=== PATIENT | female | born 1995 | race Caucasian/White ===

== ENCOUNTER 2017-03-23 23:13 | Emergency (ER) | payer BC ==
[~2017-03-23] VITALS: Ht 166.4 cm; Wt 106.6 kg
[~2017-03-23 23:13] MED LIST: DAYTRANA30 MG/9 HR TD; REMERON15 MG PO; RISPERDAL 0.50.5 MG NG; VISTARIL25 MG PO
[2017-03-23] MEDS ORDERED: GABAPENTIN100 M1 PO (23:26)
[2017-03-23] MEDS ORDERED: FOLIC ACID 1MG T1 MG PO (23:26)
[2017-03-23] MEDS ORDERED: PAXIL10 MG PO (23:27)
[2017-03-23] MEDS ORDERED: LAMICTAL XR300 MG PO (23:28)
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
--- OUTSIDE RECORDS SUMMARY | 2017-03-23 23:41 | External Medical Summary Rpt | CCD ---
Author Author , EDU Organization EDU Address Unknown Phone [email or web address] Immunization Name Date Rout CVX Reac Dose Comm Prov Is Faci e tion ent ider Refu lity Give sed n HPV4 08-2 62 999 Hist H149 No H149 6-20 oric (Gar 09 al dasi Info l) rmat ion - Sour ce Unsp ecif ied Tdap 06-2 115 999 Hist H149 No H149 , 6-20 oric Adso 09 al rbed Info rmat ion - Sour ce Unsp ecif ied Meni 06-2 32 999 Hist H149 No H149 divya 6-20 oric occa 09 al l Info MPSV rmat 4 ion - Sour ce Unsp ecif ied HPV4 06-2 62 999 Hist H149 No H149 6-20 oric (Gar 09 al dasi Info l) rmat ion - Sour ce Unsp ecif ied
--- OUTSIDE RECORDS SUMMARY | 2017-03-23 23:41 | External Medical Summary Rpt | CCD ---
Author Author , EDU Organization EDU Address Unknown Phone Immunization Name Date Rout CVX Reac Dose [...]
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
--- OUTSIDE RECORDS SUMMARY | 2017-03-23 23:42 | External Medical Summary Rpt ---
Author Author EDU Jean, [employer] Organization [employer] Address Unknown Phone Unavailable
--- NOTE | 2017-03-24 00:13 | Emergency Room Report ---
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 N Clinical Suspician of Infection? N Mental Status: 1 - Regular (Normal Baseline) Sepsis Risk:Low Sepsis Risk Have you (or family members/close friends) recently traveled outside the [place]? N If Yes, where/when: Have you had exposure to infectious disease within the past month? N TB? Other? Specify: Source patient, RN notes reviewed, family, old records Exam Limitations no limitations Comment pt with acute injury to lt ankle this pm with sts with dec rom and wt bearing Cardiac Chest Pain Chest pain indicative of cardiac No Timing/Duration this evening Severity moderate ALLERGIES Coded Allergies: MDX - No Known Allergies - Nka (NO KNOWN ALLERGIES - NKA) (Mild, 12/17/12) Home Medications Reported Medications Methylphenidate (Daytrana) 30 MG TD DAILY Risperidone (Risperdal 0.5 Mg Tablet) 0.5 MG NG QHS Hydroxyzine Pamoate (Vistaril) 25 MG PO QHS Mirtazapine (Remeron) 15 MG PO QHS FOLIC ACID (Folic Acid) 10 MG PO DAILY Gabapentin (Gabapentin 100MG) 100 MG PO PRN PRN ANXIETY PAROXETINE HCL (Paxil) 100 MG PO DAILY Lamotrigine (Lamictal XR) 300 MG PO DAILY History Medical History General CAD? No Angina: No MS: No Hypertension? No Hyperlipidemia? No CHF? No DVT? No PE? No COPD? No Asthma? No Anemia? No GERD? No Gastric ulcers? No GI Bleed? No Hernia? No Thyroid Problems? No Hypothyroidism? No CVA? No Seizures? No Diabetes? No Renal Insuffiency? No End Stage Renal Disease? No UTI? No Stones? No BPH? No GB Disease: No Nephritic Syndrome? No Asplenia? No Hepatitis? No Sickle Cell Disease? No Arthritis? No Migraines? No Cataracts? No Glaucoma? No MRSA? No HIV? No TB? No Anxiety? Yes Depression? Yes Cancer? No More? 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 Respiratory denies cough, denies shortness of breath Cardiovascular denies chest pain, denies syncope Gastrointestinal see HPI, abdominal pain, nausea, denies vomiting Genitourinary denies: dysuria, frequency, hesitancy, hematuria. Musculoskeletal see HPI, denies back pain, joint pain, joint swelling, denies neck pain Skin denies rash Psychiatric/Neurological denies headache, denies seizure Physical Exam Vital Signs Vital Signs Date Time Temp Pulse Resp B/P Pulse O2 O2 Flow FiO2 Ox Delivery Rate 03/23 2319 97.8 100 18 161/89 96 - WBC >12,000 or <4,000 or 10% bands? 2 or more SIRS Criteria Met? B/P:161/89 MAP:113 Creatinine >2.0? UA output<0.5ml/kg/hr for 2 hrs? Platelet count >100,000? Lactate >2.0mmol/1? INR >1.2 or PTT > than 60 sec? Evidence of Organ Dysfunction? Provider documented clinical suspician of infection? N Sepsis Criteria Count: 1 Sepsis Risk: Low Sepsis Risk General Appearance no apparent distress Eye Exam - bilateral eye PERRL, bilateral eye EOMI Ear, Nose, Throat normal ENT inspection Neck non-tender Respiratory Status No: respiratory distress. 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 No Results/Orders Orders Procedure Date/time Status ANKLE-LT-3 VIEWS 03/23 2323 Active XRAY/CT/US XRAY/CT/US XRAY ankle XR interpretation by reviewed by me Xray Results no fracture seen Departure Departure Time of Disposition 12 Disposition DC Home or Self Care(routine) Clinical Impression Primary Impression: Left ankle sprain Qualifiers: Encounter type: initial encounter Involved ligament of ankle: unspecified ligament Qualified Code: S93.402A - Sprain of unspecified ligament of left ankle, initial encounter Condition STABLE Referrals JULIAN GONZALEZ DPM Patient Instructions DI for Ankle Sprain Additional Instructions ice and advil/tyenol and see dr gonzalez for follow up Discharge Counseling Counseled pt/family regarding diagnosis, test results, medications/RX, follow up needs ED Critical Care Critical Care No at 0018
--- NOTE | 2017-03-24 00:13 | Emergency Room Report ---
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 N Clinical Suspician of Infection? N Mental Status: 1 - Regular (Normal Baseline) Sepsis Risk:Low Sepsis Risk Have you (or family members/close friends) recently traveled outside the [place]? N If Yes, where/when: Have you had exposure to infectious disease within the past month? N TB? Other? Specify: Source patient, RN notes reviewed, family, old records Exam Limitations no limitations Comment pt with acute injury to lt ankle this pm with sts with dec rom and wt bearing Cardiac Chest Pain Chest pain indicative of cardiac No Timing/Duration this evening Severity moderate ALLERGIES Coded Allergies: MDX - No Known Allergies - Nka (NO KNOWN ALLERGIES - NKA) (Mild, 12/17/12) Home Medications Reported Medications Methylphenidate (Daytrana) 30 MG TD DAILY Risperidone (Risperdal 0.5 Mg Tablet) 0.5 MG NG QHS Hydroxyzine Pamoate (Vistaril) 25 MG PO QHS Mirtazapine (Remeron) 15 MG PO QHS FOLIC ACID (Folic Acid) 10 MG PO DAILY Gabapentin (Gabapentin 100MG) 100 MG PO PRN PRN ANXIETY PAROXETINE HCL (Paxil) 100 MG PO DAILY Lamotrigine (Lamictal XR) 300 MG PO DAILY History Medical History General CAD? No Angina: No [place]: No Hypertension? No Hyperlipidemia? No CHF? No DVT? No PE? No COPD? No Asthma? No Anemia? No GERD? No Gastric ulcers? No GI Bleed? No Hernia? No Thyroid Problems? No Hypothyroidism? No CVA? No Seizures? No Diabetes? No Renal Insuffiency? No End Stage Renal Disease? No UTI? No Stones? No BPH? No GB Disease: No Nephritic Syndrome? No Asplenia? No Hepatitis? No Sickle Cell Disease? No Arthritis? No Migraines? No Cataracts? No Glaucoma? No MRSA? No HIV? No TB? No Anxiety? Yes Depression? Yes Cancer? No More? 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 Respiratory denies cough, denies shortness of breath Cardiovascular denies chest pain, denies syncope Gastrointestinal see HPI, abdominal pain, nausea, denies vomiting Genitourinary denies: dysuria, frequency, hesitancy, hematuria. Musculoskeletal see HPI, denies back pain, joint pain, joint swelling, denies neck pain Skin denies rash Psychiatric/Neurological denies headache, denies seizure Physical Exam Vital Signs Vital Signs Date Time Temp Pulse Resp B/P Pulse O2 O2 Flow FiO2 Ox Delivery Rate 03/23 2319 97.8 100 18 161/89 96 - WBC >12,000 or <4,000 or 10% bands? 2 or more SIRS Criteria Met? B/P:161/89 MAP:113 Creatinine >2.0? UA output<0.5ml/kg/hr for 2 hrs? Platelet count >100,000? Lactate >2.0mmol/1? INR >1.2 or PTT > than 60 sec? Evidence of Organ Dysfunction? Provider documented clinical suspician of infection? N Sepsis Criteria Count: 1 Sepsis Risk: Low Sepsis Risk General Appearance no apparent distress Eye Exam - bilateral eye PERRL, bilateral eye EOMI Ear, Nose, Throat normal ENT inspection Neck non-tender Respiratory Status No: respiratory distress. 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 No Results/Orders Orders Procedure Date/time Status ANKLE-LT-3 VIEWS 03/23 2323 Active XRAY/CT/US XRAY/CT/US XRAY ankle XR interpretation by reviewed by me Xray Results no fracture seen Departure Departure Time of Disposition 12 Disposition DC Home or Self Care(routine) Clinical Impression Primary Impression: Left ankle sprain Qualifiers: Encounter type: initial encounter Involved ligament of ankle: unspecified ligament Qualified Code: S93.402A - Sprain of unspecified ligament of left ankle, initial encounter Condition STABLE Referrals JULIAN GONZALEZ DPM Patient Instructions DI for Ankle Sprain Additional Instructions ice and advil/tyenol and see dr gonzalez for follow up Discharge Counseling Counseled pt/family regarding diagnosis, test results, medications/RX, follow up needs ED Critical Care Critical Care No at 0018
[2017-03-24 00:51] VITALS: BP 119/76
--- NOTE | 2017-03-24 05:16 | RADIOLOGY REPORT PS360 ---
ANKLE-LT-3 VIEWS HISTORY: Pain following injury INJURY ORDERING PHYSICIAN: Peg Almaraz MD PATIENT AGE: 21 years COMPARISON: None FINDINGS: No fracture or dislocation. No lytic or blastic change. There is normal mineralization.. The joint spaces are well-preserved. No significant degenerative/arthritic changes. No erosive changes evident. IMPRESSION: Negative ankle, no acute finding
== END 2017-03-24 00:53 | disposition home or self-care (01) ==
LOC: ER 23:13
DX: S93.402A Sprain of unspecified ligament of left ankle, initial encounter (principal); W18.2XXA Fall in (into) shower or empty bathtub, initial encounter; Y93.E1 Activity, personal bathing and showering; Y92.002 Bathroom of unspecified non-institutional (private) residence as the place of occurrence of the external cause; F31.9 Bipolar disorder, unspecified; F41.9 Anxiety disorder, unspecified; F60.3 Borderline personality disorder; F90.9 Attention-deficit hyperactivity disorder, unspecified type; F17.210 Nicotine dependence, cigarettes, uncomplicated; Z79.899 Other long term (current) drug therapy

== ENCOUNTER 2017-04-30 02:11 | Emergency (ER) | payer BC ==
[~2017-04-30] VITALS: Ht 166.4 cm; Wt 102.1 kg
[~2017-04-30 02:11] MED LIST changes: +FOLIC ACID 1MG T1 MG PO; +GABAPENTIN100 M1 PO; +LAMICTAL XR300 MG PO; +PAXIL10 MG PO
--- NOTE | 2017-04-30 02:14 | Emergency Room Report ---
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 N Clinical Suspician of Infection? N Mental Status: 1 - Regular (Normal Baseline) Sepsis Risk:Possible Sepsis Risk Have you (or family members/close friends) recently traveled outside the [place]? N If Yes, where/when: Have you had exposure to infectious disease within the past month? N TB? Other? Specify: Comment The patient states that she is brought in by her aunt for chest pain and panic attack. The patient has a history of anxiety attacks and says she has had 3 since yesterday. She says that she believes this is because it has been 1 year since her sister has been gone. She says that she has crying, chest pain, and trouble breathing when she gets her anxiety attacks. 45 minutes prior to arrival she had onset of the symptoms again, but much worse than usual. She called her aunt who brought her to the hospital. She is on Klonopin for the symptoms, prescribed by her PCP. She last took it yesterday, did not take any tonight for her symptoms. She also has a history of attention deficit/hyperactivity disorder , depression, and borderline personality. ALLERGIES Coded Allergies: No Known Allergies (03/24/17) Home Medications Reported Medications Hydroxyzine Pamoate (Vistaril) 25 MG PO QHS Mirtazapine (Remeron) 15 MG PO QHS FOLIC ACID (Folic Acid) 10 MG PO DAILY Gabapentin (Gabapentin 100MG) 100 MG PO PRN PRN ANXIETY PAROXETINE HCL (Paxil) 100 MG PO DAILY Lamotrigine (Lamictal XR) 300 MG PO DAILY Clonazepam (Clonazepam 0.5MG) 0.5 MG PO QHS #30 History Medical History General CAD? No Angina: No IN: No Hypertension? No Hyperlipidemia? No CHF? No DVT? No PE? No COPD? No Asthma? No Anemia? No GERD? No Gastric ulcers? No GI Bleed? No Hernia? No Thyroid Problems? No Hypothyroidism? No CVA? No Seizures? No Diabetes? No Renal Insuffiency? No End Stage Renal Disease? No UTI? No Stones? No BPH? No GB Disease: No Nephritic Syndrome? No Asplenia? No Hepatitis? No Sickle Cell Disease? No Arthritis? No Migraines? No Cataracts? No Glaucoma? No MRSA? No HIV? No TB? No Anxiety? Yes Depression? Yes Cancer? No More? Yes Additional hx: BIPOLAR, ADHD, BODERLINE PERSOALITY DISORDER Immunization Hx DT/Tetanus 1-4 YRS Surgical Hx Previous Surgery?Y TONSILECTOMY EAR TUBES BILAT Social History Smoking Hx Packs/day < 1 Pack Alcohol Alcohol: No Review of Systems All Other Systems Reviewed and Negative Constitutional denies fever Respiratory shortness of breath Cardiovascular chest pain Psychiatric/Neurological anxiety, emotional problems Physical Exam Vital Signs Vital Signs Date Time Temp Pulse Resp B/P Pulse O2 O2 Flow FiO2 Ox Delivery Rate 04/30 426 98.1 113 20 137/93 99 04/30 0422 20 04/30 0420 98.1 113 20 137/93 99 04/30 0255 117 20 144/69 100 04/30 0244 20 04/30 0214 98.1 107 28 147/97 100 General Appearance no apparent distress Eye Exam - bilateral eye normal exam, bilateral eye PERRL, bilateral eye EOMI Ear, Nose, Throat hearing grossly normal, normal ENT inspection Neck normal inspection, non-tender, supple, full range of motion Respiratory Status Yes: trachea midline, chest symmetrical. No: respiratory distress. Lung Sounds bilateral: normal breath sounds, lungs clear. Cardiovascular no peripheral edema, no gallop, no JVD, no murmur, no rub, normal peripheral pulses, tachycardia Peripheral Pulses Pulses normal Yes Gastrointestinal normal bowel sounds, normal exam, non tender, soft, no organomegaly Extremities non-tender, normal range of motion, normal inspection Neurologic alert, normal exam, oriented x 3 Mental status anxious Skin intact, normal color, warm/dry Medical Decision Making LABS/Meds/Orders Pt receiving controlled substance in ED? Yes Bryant was queried for this patient? Yes Comment [id number] 1 rx for 30 clonazepam on 04/12/17 Results/Orders Laboratory Tests 11/26/17 0310: Opiates Screen NEGATIVE, Urine Methadone Screen NEGATIVE, Barbiturates NEGATIVE, Phencyclidine Screen NEGATIVE, Amphetamines Screen NEGATIVE, Benzodiazepines Screen NEGATIVE, Cocaine Screen NEGATIVE, Marijuana (THC) Screen NEGATIVE 04/30/17227: Sodium 144, Potassium 3.5, Chloride 106, Carbon Dioxide 28, BUN 12, Creatinine 0.8, Estimated Creat Clear 182, Estimated GFR (MDRD) 92, Glucose 113 H, Calcium 9.1, Total Bilirubin 0.5, AST 32, ALT 58, Alkaline Phosphatase 121 H, Creatine Kinase 150, CK-MB (CK-2) Rel Index 0.4, CK and CKMB Interp 0.6, Troponin I < 0.02, Total Protein 7.4, Albumin 3.8, Globulin 3.6 H, Albumin/Globulin Ratio 1.1, D-Dimer < 100, WBC 10.9, RBC 4.60, Hgb 13.2, Hct 39.8, MCV 86.5, RDW 11.8, Plt Count 240, MPV 8.2, Gran % 63.7, Gran # 7.0, Lymphocytes % 28.3, Monocytes % 5.1, Eosinophils % 2.5, Basophils % 0.3, Lymphocytes # 3.1, Monocytes # 0.6, Eosinophils # 0.3, Basophils # 0.0, PUBS MCHC 33.1, MCH 28.6 Current Medication Orders Sig/Dg Start time Last Medication Dose Route Stop Time Status Admin Ketorolac 0 .STK-MED ONE 04/30 419 DC Tromethamine .ROUTE Ketorolac 30 MG ONCE ONE 04/30 415 DC 04/30 Tromethamine IV 04/30 416 042 Lorazepam 1 MG ONCE ONE 04/30 245 DC 04/30 IV 04/30 246 024 Lorazepam 0 .STK-MED ONE 04/30 244 DC .ROUTE Aspirin 324 MG ONCE ONE 04/30 230 DC 04/30 PO 04/30 Sodium Chloride 10 ML PRN PRN 04/30 230 DCD IV 05/01 220 Aspirin 0 .STK-MED ONE 04/30 223 DC .ROUTE Orders Procedure Date/time Status D-DIMER 04/30 243 Complete URINE 04/30 222 Complete DRUG ABUSE SCREEN (TRIAGE) 04/30 222 Complete ELECTROCARDIOGRAM REQUEST 04/30 221 Active CHEST(2 VIEWS-NOT PORTABLE) 04/30 221 Active IV SALINE LOCK 04/30 221 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 Stated that her chest pain had improved since onset. She now requests something for pain. Toradol ordered. An side is not changed after Ativan, but she appears calm, using a smart phone, and says she feels well enough to go home. Departure Departure Disposition DC Home or Self Care(routine) Clinical Impression Primary Impression: Anxiety state Secondary Impressions: Atypical chest pain Condition STABLE Referrals Silvio DUMONT,A.C. (Family) Patient Instructions DI for Anxiety -- Adult, DI for Atypical Chest Pain Additional Instructions Additional instructions for CHEST PAIN: See your physician as soon as possible for further evaluation. Return immediately if worsening chest pain, vomiting, shortness of breath, fever, coughing of blood. ED Critical Care Critical Care No at [id number]
[2017-04-30] MEDS ORDERED: CLONAZEPAM0.5 M1 PO (02:19)
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
--- OUTSIDE RECORDS SUMMARY | 2017-04-30 02:30 | External Medical Summary Rpt | CCD ---
Author Author , EDU Organization EDU Address Unknown Phone [email or web address] Immunization Name Date Rout CVX Reac Dose [...]
--- OUTSIDE RECORDS SUMMARY | 2017-04-30 02:30 | External Medical Summary Rpt | CCD ---
Author Author , EDU Organization EDU Address Unknown Phone [email or web address] Immunization Name Date Rout CVX Reac Dose [...]
[2017-04-30 02:40] LABS: HEMOGLOBIN 13.2 g/dL (12.2-16.2); LYMPH # 3.1 K/mm3 (0.7-4.5); LYMPH % 28.3 % (10-50.0)
[2017-04-30 03:06] LABS: BUN 12 mg/dL (7-18)
[2017-04-30 03:22] LABS: GFR (ESTIMATED) 92 ML/MIN (59-)
[2017-04-30 03:29] LABS: AMPHETAMINES/METAMPHETAMINES NEGATIVE ng/mL (<1000)
[2017-04-30 04:26] VITALS: BP 137/93
--- NOTE | 2017-04-30 12:22 | RADIOLOGY REPORT PS360 ---
CHEST(2 VIEWS-NOT PORTABLE) Ordering physician: Tim Keyes MD Age: 21 years Female INDICATION: chest symptomsC/O CHEST PAIN anxiety smoker. PROCEDURE: CHEST(2 VIEWS-NOT PORTABLE) FINDINGS: No previous studies for comparison Lungs well expanded and clear with nothing definitely acute. No pneumothorax. No pleural effusion. Heart normal size. Normal pulmonary vascularity. Hilar and mediastinal structures appear satisfactory. Chest wall unremarkable.. IMPRESSION ----- Lungs clear with Nothing definitely acute
== END 2017-04-30 04:26 | disposition home or self-care (01) ==
LOC: ER 02:11
PROVIDERS: Emergency Medicine
DX: R07.89 Other chest pain (principal); F41.8 Other specified anxiety disorders

== ENCOUNTER 2017-05-07 12:33 | Observation (INO) | payer BC ==
[~2017-05-07] VITALS: Ht 167.6 cm; Wt 102.1 kg
[~2017-05-07 12:33] MED LIST changes: +CLONAZEPAM0.5 M1 PO
[2017-05-07 12:37] VITALS: BP 150/81
[2017-05-07 12:45] LABS: HEMOGLOBIN 12.8 g/dL (12.2-16.2); LYMPH # 1.8 K/mm3 (0.7-4.5); LYMPH % 19.2 % (10-50.0)
[2017-05-07 12:50] LABS: URINE BILIRUBIN - DIPSTICK NEGATIVE (NEG); URINE BLOOD NEGATIVE (NEG)
--- NOTE | 2017-05-07 12:57 | Emergency Room Report ---
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 N Clinical Suspician of Infection? N Mental Status: 1 - Regular (Normal Baseline) Sepsis Risk:Low Sepsis Risk Have you (or family members/close friends) recently traveled outside the [place]? N If Yes, where/when: Have you had exposure to infectious disease within the past month? TB? Other? Specify: Source patient, RN notes reviewed, family, police, EMS, old records Exam Limitations no limitations Comment this wf with long hx of pschy illness and has upset with her boyfriend and mis took her wellbutrin/klonopin and took friends xanax - uncertain as to intent but reported not suicidial Cardiac Chest Pain Chest pain indicative of cardiac No Timing/Duration this evening Severity moderate ALLERGIES Coded Allergies: No Known Allergies (05/07/17) Home Medications Reported Medications Hydroxyzine Pamoate (Vistaril) 25 MG PO QHS Mirtazapine (Remeron) 15 MG PO QHS FOLIC ACID (Folic Acid) 10 MG PO DAILY Gabapentin (Gabapentin 100MG) 100 MG PO PRN PRN ANXIETY PAROXETINE HCL (Paxil) 100 MG PO DAILY Lamotrigine (Lamictal XR) 300 MG PO DAILY Clonazepam (Clonazepam 0.5MG) 0.5 MG PO QHS #30 History Medical History General CAD? No Angina: No MS: No Hypertension? No Hyperlipidemia? No CHF? No DVT? No PE? No COPD? No Asthma? No Anemia? No GERD? No Gastric ulcers? No GI Bleed? No Hernia? No Thyroid Problems? No Hypothyroidism? No CVA? No Seizures? No Diabetes? No Renal Insuffiency? No End Stage Renal Disease? No UTI? No Stones? No BPH? No GB Disease: No Nephritic Syndrome? No Asplenia? No Hepatitis? No Sickle Cell Disease? No Arthritis? No Migraines? No Cataracts? No Glaucoma? No MRSA? No HIV? No TB? No Anxiety? Yes Depression? Yes Cancer? No More? 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 Respiratory denies cough, denies shortness of breath, denies wheezing Cardiovascular denies chest pain, denies syncope Gastrointestinal denies abdominal pain, denies diarrhea, denies vomiting Genitourinary denies: dysuria, frequency, hesitancy, hematuria. Musculoskeletal denies back pain, denies joint pain, denies joint swelling, denies neck pain Skin denies rash Psychiatric/Neurological see HPI, depressed, emotional problems, denies seizure Physical Exam Vital Signs Vital Signs Date Time Temp Pulse Resp B/P Pulse O2 O2 Flow FiO2 Ox Delivery Rate 05/07 1415 115 20 137/77 100 05/07 1256 102 20 132/56 100 05/07 1245 98 05/07 1237 97.8 105 18 150/81 98 - WBC >12,000 or <4,000 or 10% bands? 2 or more SIRS Criteria Met? B/P:127/78 MAP:104 Creatinine >2.0? UA output<0.5ml/kg/hr for 2 hrs? Platelet count >100,000? Lactate >2.0mmol/1? INR >1.2 or PTT > than 60 sec? Evidence of Organ Dysfunction? Provider documented clinical suspician of infection? N Sepsis Criteria Count: 1 Sepsis Risk: Low Sepsis Risk General Appearance no apparent distress Eye Exam - bilateral eye PERRL, bilateral eye EOMI Ear, Nose, Throat normal ENT inspection Neck supple Respiratory Status No: respiratory distress. Lung Sounds bilateral: lungs clear. Cardiovascular regular rate/rhythm, no murmur Peripheral Pulses Pulses normal Yes Gastrointestinal soft Extremities normal inspection Strength 4 Upper Ext (L), 4 Upper Ext (R), 4 Lower Ext (L), 4 Lower Ext (R) Neurologic alert, director of acquisitions II-XII nml as tested, no motor/sensory deficits Glascow Coma Scale Glascow Coma Scale Response Value EYE response: 4 Spontaneously 4 MOTOR response: 6 OBEYS 6 VERBAL response: 5 Oriented & Converses 5 Total 15 Reflexes Reflexes normal Yes Mental status depressed affect, no hallucination or delusions and denied suicidial - insight poor Skin intact Suicide Risk Assessment Suicide Assessment indicated? Yes Risk Assessment Score Risk Assessment Score Response Value DETAILS: Vague 1 AVAILABILITY OF MEANS: Not available;have to get 1 TIME: No specific time-future 1 LETHALITY OF METHOD: Pills or slashed wrists 1 CHANCE OF INTERVENTION: Others present most time 1 PREVIOUS SUICIDE ATTEMPS: Multiple low lethality 2 STRESS: Mod reaction to loss/chng 2 COPING BEHAVIOR: Some daily act disrupted 2 DEPRESSION: Mod, some sadness/lonely 2 SUICIDE RESOURCES: Family available/willing 2 COMMUNICATION ASPECTS: Directly express feeling 1 LIFESTYLE: Acting out behavior 2 MEDICAL STATUS: Psychosomatic illness 2 Total 20 Level of Risk Determined: Med-() Nursing notified of risk? Yes Medical Decision Making LABS/Meds/Orders Pt receiving controlled substance in ED? No Results/Orders Laboratory Tests 05/07/17 1234: Opiates Screen NEGATIVE, Urine Methadone Screen NEGATIVE, Barbiturates NEGATIVE, Phencyclidine Screen NEGATIVE, Amphetamines Screen NEGATIVE, Benzodiazepines Screen NEGATIVE, Cocaine Screen NEGATIVE, Marijuana (THC) Screen NEGATIVE 05/07/17 1234: Sodium 141, Potassium 3.6, Chloride 105, Carbon Dioxide 24, BUN 12, Creatinine 0.9, Estimated Creat Clear 160, Estimated GFR (MDRD) 81, Glucose 179 H, Calcium 9.1, Total Bilirubin 0.7, AST 23, ALT 42, Alkaline Phosphatase 117 H, Total Protein 7.5, Albumin 3.9, Globulin 3.6 H, Albumin/Globulin Ratio 1.1, WBC 9.2, RBC 4.40, Hgb 12.8, Hct 38.8, MCV 88.2, RDW 11.7, Plt Count 303, MPV 8.0, Gran % 77.9, Gran # 7.1, Lymphocytes % 19.2, Monocytes % 2.5, Eosinophils % 0.3, Basophils % 0.2, Lymphocytes # 1.8, Monocytes # 0.2, Eosinophils # 0.0, Basophils # 0.0, PUBS MCHC 33.1, MCH 29.2, Salicylates 0.4 L, Acetaminophen 0 L, Alcohols 0, Urine Color YELLOW, Urine Appearance CLEAR, Urine pH 6.5, Ur Specific Alpine 1.025, Urine Protein NEGATIVE, Urine Ketones 1+ H, Urine Blood NEGATIVE, Urine Nitrate NEGATIVE, Urine Bilirubin NEGATIVE, Urine Urobilinogen 0.2, Ur Leukocyte Esterase NEGATIVE, Urine WBC 3-5, Ur Squamous Epith Cells OCC, Urine Bacteria 1+, Urine Glucose NEGATIVE Current Medication Orders Sig/Dg Start time Last Medication Dose Route Stop Time Status Admin Ondansetron HCl 4 MG ONCE ONE 05/07 1315 DC 05/07 IV 05/07 1316 1314 Ondansetron HCl 0 .STK-MED ONE 05/07 1314 DC .ROUTE Sodium Chloride 10 ML PRN PRN 05/07 1245 AC IV 05/08 1236 Sodium Chloride 1,000 ML .STK-MED ONE 05/07 1240 DC IV Orders Procedure Date/time Status Decision to admit 05/07 1504 Active SALICYLATE 05/07 1252 Complete ALCOHOL 05/07 1252 Complete Acetaminophen 05/07 1252 Complete CHEST-PORTABLE 05/07 1237 Active IV SALINE LOCK 05/07 1237 Active OXYGEN PER NURSE 05/07 1237 Active URINALYSIS/COMPLETE 05/07 1237 Complete URINE 05/07 1237 Complete DRUG ABUSE SCREEN (TRIAGE) 05/07 1237 Complete CBC WITH AUTO DIFF 05/07 1237 Complete CHEM 12 PROFILE 05/07 1237 Complete Departure Departure Time of Disposition 1543 Disposition Still a Patient Clinical Impression Primary Impression: Depression Qualifiers: Depression Type: reactive depression Qualified Code: F32.9 - Major depressive disorder, single episode, unspecified Secondary Impressions: Misuse of drugs Condition STABLE Referrals Sorin Giron MD discussed with dr sedrick [facility] Critical Care No at 1552
--- OUTSIDE RECORDS SUMMARY | 2017-05-07 13:11 | External Medical Summary Rpt | CCD ---
Author Author , EDU SORENSEN Address Unknown Phone [email or web address] Purpose Continuity of Care Document - 04-05-2017 through 2016 Problems Code Diagnosis DOS Provider Status F17.210 NICOTINE 04-05-2017 DEPENDENCE, CIGARETTES, UNCOMPLICAT ED F32.9 MAJOR 04-05-2017 DEPRESSIVE DISORDER, SINGLE EPISODE, UNSPECIFIED F41.9 ANXIETY 04-05-2017 DISORDER, UNSPECIFIED R11.10 VOMITING, 04-05-2017 UNSPECIFIED Z79.899 OTHER LONG 04-05-2017 TERM (CURRENT) DRUG THERAPY F41.1 GENERALIZED ANXIETY DISORDER R07.89 OTHER CHEST PAIN S93.401A SPRAIN OF UNSPECIFIED LIGAMENT OF RIGHT ANKLE, INIT ENCNTR S93.402A SPRAIN OF UNSPECIFIED LIGAMENT OF LEFT ANKLE, INIT ENCNTR Results Labs Lab Lab Date Result Refere Interp Status Commen Order Detail nces retati t Range on Urine 9-analyte drugs of abuse screening (04-30-2017 03:10) Comment: Positive urine drug screen samples are stored for 7 days. Comment: Contact the Lab if confirmation of positives is needed. 11-hydr NEGATIV <50 complet oxy 017 E ed delta-9 03:10 NEGATIV E L tetrahy ng/mL drocann abinol Phencyc = <25 complet lidine 017 NEGATIV ed measure 03:10 E ng/mL ment (mass/v olume) Opiates = <300 complet 017 NEGATIV ed measure 03:10 E ng/mL ment (mass/v olume) Methado = <300 complet ne 017 NEGATIV ed measure 03:10 E ng/mL ment (mass/v olume) Cocaine = <300 complet 017 NEGATIV ed measure 03:10 E ng/g ment (mass/v olume) Serum = 200 complet or 017 NEGATIV ng/mL ed plasma 03:10 E ng/mL benzodi azepine s measure m Urine = <200 complet barbitu 017 NEGATIV ed rates 03:10 E ng/mL measure ment by screen Urine NEGATIV <1000 complet ampheta 017 E ed mine 03:10 NEGATIV screeni E L ng test ng/mL Urine test (04-30-2017 03:10) Urine = NEG complet pregnan 017 NEGATIV ed cy test 03:10 E Drugs identified in Urine by Screen method (04-30-2017 03:10) Ampheta NEGATIV <1000 complet mine 017 E ed [Presen 03:10 ce] in Urine by Screen method NEGATIV <50 complet oxy 017 E ed delta-9 03:10 tetrahy drocann abinol [Presen ce] in Unspeci fied specime n D-dimer (04-30-2017 02:28) D-dimer < 100 0-400 complet 017 ng/mL ed 02:28 Comment: The D-Dimer values are presented in units of mass(ng/mL) of Comment: D-Dimer units(DDU). Comment: Comment: This test has been FDA approved as an aid in the assessment Comment: and evaluation of suspected DIC, and thromboembolic events Comment: including PE and DVT. However, it does not have approval Comment: for cut-off values for the exclusion of these conditions. Comprehensive metabolic panel (04-30-2017 02:28) Protein = 7.4 6.4-8.2 complet total 017 gm/dL ed ser/christine 02:28 s ALT = 58 12-78 complet (SGPT) 017 U/L ed ser/christine 02:28 s Serum = 32 15-37 complet or 017 U/L ed plasma 02:28 asparta te aminotr ansfera Serum = 144 136-145 complet sodium 017 mmoL/L ed measure 02:28 ment Serum = 3.5 3.5-5.1 complet potassi 017 mmoL/L ed um 02:28 measure ment Serum = 113 74-106 complet or 017 mg/dL ed plasma 02:28 glucose measure ment (mas Serum = 3.6 1.3-3.2 complet globuli 017 gm/dL ed n 02:28 measure ment (mass/v olume) Estimat = 92 59- complet ed 017 ML/MIN ed glomeru 02:28 lar filtrat ion rate (GF Comment: REFERENCE RANGE: >60 ML/MIN/1.73 SQUARE METERS Comment: If this patient is -[place], then multiply the Comment: result by 1.210. Estimat = 182 50-200 complet ion of 017 ML/MIN ed creatin 02:28 ine renal clearan ce Serum = 0.8 0.55-1. complet or 017 mg/dL 02 ed plasma 02:28 creatin ine measure ment ( Carbon = 28 21.0-32 complet dioxide 017 mmoL/L .0 ed 02:28 measure ment Serum = 106 98-107 complet or 017 mmoL/L ed plasma 02:28 chlorid e measure ment (mo Serum = 9.1 8.5-10. complet or 017 mg/dL 1 ed plasma 02:28 calcium measure ment (mas Serum = 12 7-18 complet or 017 mg/dL ed plasma 02:28 urea nitroge n measure men Serum = 0.5 0.2-1.0 complet or 017 mg/dL ed plasma 02:28 total bilirub in measure m Serum = 121 46-116 complet or 017 U/L ed plasma 02:28 alkalin e phospha tase kenyon Serum = 3.8 3.4-5.0 complet or 017 gm/dL ed plasma 02:28 albumin measure ment (mas Serum = 1.1 1.1-1.8 complet or 017 ed plasma 02:28 albumin /globul in mass ra CBC w auto diff (04-30-2017 02:28) Blood = 10.9 4.5-13. complet leukocy 017 K/MM3 0 ed criss 02:28 count (number /volume ) Automat = 11.8 11.5-17 complet ed 017 % .5 ed erythro 02:28 cyte distrib ution width Red = 4.60 4.2-5.4 complet blood 017 M/mm3 ed cell 02:28 count Blood = 240 142-424 complet platele 017 K/mm3 ed t count 02: Automat = 8.2 7.4-10. complet ed 017 fl 4 ed blood 02:28 platele t mean volume kenyon [facility] % = 5.1 % 1.7-9.3 complet 017 ed 02:28 Absolut = 0.6 0.1-1.0 complet e 017 K/mm3 ed monocyt 02:28 e count Automat = 86.5 82.2-97 complet ed 017 fl .8 ed erythro 02:28 cyte mean corpusc ular v Automat = 33.1 31.8-35 complet ed 017 g/dl .4 ed erythro 02:28 cyte mean corpusc ular h Mean = 28.6 27-31.2 complet corpusc 017 pg ed ular 02:28 hemoglo bin (MCH) determ Lymphoc = 28.3 10-50.0 complet yte 017 % ed count, 02:28 blood, automat ed Absolut = 3.1 0.7-4.5 complet e 017 K/mm3 ed lymphoc 02:28 yte count Blood = 13.2 12.2-16 complet hemoglo 017 g/dL .2 ed bin 02:28 measure ment (mass/v olum Blood = 39.8 37.0-47 complet hematoc 017 % .0 ed rit 02:28 (volume fractio n) Granulo = 63.7 37.0-80 complet cyte 017 % .0 ed percent 02:28 age Blood = 7.0 1.8-7.8 complet granulo 017 K/mm3 ed cytes 02:28 automat ed count (numb Automat = 2.5 % 0.1-12. complet ed 017 0 ed blood 02:28 eosinop hils/10 0 leukocy t Automat 11-26-2 = 0.3 0.0-0.4 complet ed 017 K/mm3 ed blood 02:28 eosinop hil count Baso % 04-30-2 = 0.3 % 0.1-2.0 complet 017 ed 02:28 Automat 04-30-2 = 0.0 0-0.2 complet ed 017 K/MM3 ed blood 02:28 basophi l count (count/ vo Cardiac enzymes (04-30-2017 02:28) Serum 04-30-2 < 0.02 0.00-0. complet or 017 ng/mL 06 ed plasma 02:28 troponi n i.cardi ac measu Serum 2 = 150 26-192 complet or 017 U/L ed plasma 02:28 creatin e kinase measure m Serum 2 = 0.6 0.0-3.6 complet or 017 ng/mL ed plasma 02:28 creatin e kinase MB measu Serum 04-30-2 = 0.4 0-4.0 complet or 017 U/L ed plasma 02:28 creatin e kinase MB (CK-M
--- OUTSIDE RECORDS SUMMARY | 2017-05-07 13:11 | External Medical Summary Rpt | CCD ---
Author Author , EDU SORENSEN Address Unknown Phone [email or web address] Purpose Continuity of Care Document - 04-05-2017 [...] SQUARE METERS Comment: If this patient is -[place] African, then multiply the Comment: result by 1.210. [...] blood 02:28 platele t mean volume kenyon Nicholas % = 5.1 % 1.7-9.3 complet 017 [...]
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
--- OUTSIDE RECORDS SUMMARY | 2017-05-07 13:13 | External Medical Summary Rpt ---
Author Author EDU Jean, SUSANKEYONA Production Organization [employer] Address Unknown Phone Unavailable Results Drugs identified in Urine by Screen method Observa Value Referen Units Interpr Notes Date tion ce etation Range Positive urine drug screen samples are stored for 7 days. Contact the Lab if confirmation of positives is needed. Ampheta NEGATIV <1000 ng/mL No Apr 30 mine E informa informa 2016 [Presen tion in tion in 3:10 AM ce] in source source Urine data data by Screen method Barbitura <200 ng/mL No Apr 30 criss informati informati 2016 3:10 [Mass/vol on in on in AM ume] in source source Urine by data data Screen method Benzodiaz 200 ng/mL ng/mL No Apr 30 epines informati informati 2016 3:10 [Mass/vol on in on in AM ume] in source source Serum or data data Plasma by Screen method Cocaine <300 ng/g No Apr 30 [Mass/vol informati informati 2016 3:10 ume] in on in on in AM Unspecifi source source ed data data specimen Methadone <300 ng/mL No Apr 30 informati informati 2016 3:10 [Mass/vol on in on in AM ume] in source source Unspecifi data data ed specimen Opiates <300 ng/mL No Apr 30 [Mass/vol informati informati 2016 3:10 ume] in on in on in AM Unspecifi source source ed data data specimen Phencycli <25 ng/mL No Apr 30 dine informati informati 2016 3:10 [Mass/vol on in on in AM ume] in source source Unspecifi data data ed specimen 11-Hydr NEGATIV <50 ng/mL No Apr 30 oxy E informa informa 2017 delta-9 tion in tion in 3:10 AM source source tetrahy data data drocann abinol [Presen ce] in Unspeci fied specime n Choriogonadotropin.beta subunit [Units] in 24 hour Urine Observa Value Referen Units Interpr Notes Date tion ce etation Range Choriogon NEG No No No Apr 30 adotropin informati informati informati 2016 3:10 .beta on in on in on in AM subunit source source source [Units] data data data in 24 hour Urine CBC W Auto Differential panel in Blood Observa Value Referen Units Interpr Notes Date tion ce etation Range Basophils 0 - 0.2 K/MM3 Normal No Apr 30 informati 2016 2:28 [#/volume on in AM ] in source Blood by data Automated count Basophils 0.1 - 2.0 % Normal No Apr 30 /100 informati 2017 2:28 leukocyte on in AM s in source Blood by data Automated count Eosinophi 0.0 - 0.4 K/mm3 Normal No Apr 30 ls informati 2016 2:28 [#/volume on in AM ] in source Blood by data Automated count Eosinophi 0.1 - % Normal No Apr 30 ls/100 12.0 informati 2016 2:28 leukocyte on in AM s in source Blood by data Automated count Granulocy 1.8 - 7.8 K/mm3 Normal No Apr 30 criss informati 2016 2:28 [#/volume on in AM ] in source Blood by data Automated count Granulocy 37.0 - % Normal No Apr 30 criss/100 80.0 informati 2016 2:28 leukocyte on in AM s in source Blood by data Automated count Hematocri 37.0 - % Normal No Apr 30 t [Volume 47.0 informati 2016 2:28 on in AM Fraction] source of Blood data Hemoglobi 12.2 - g/dL Normal No Apr 30 n 16.2 informati 2016 2:28 [Mass/vol on in AM ume] in source Blood data Lymphocyt 0.7 - 4.5 K/mm3 Normal No Apr 30 es informati 2016 2:28 [#/volume on in AM ] in source Unspecifi data ed specimen by Automated count Lymphocyt 10 - 50.0 % Normal No Apr 30 es informati 2016 2:28 [#/volume on in AM ] in source Unspecifi data ed specimen by Automated count Erythrocy 27 - 31.2 pg Normal No Apr 30 te mean informati 2016 2:28 corpuscul on in AM ar source hemoglobi data n [Entitic mass] Erythrocy 31.8 - g/dl Normal No Apr 30 te mean 35.4 informati 2016 2:28 corpuscul on in AM ar source hemoglobi data n concentra tion [Mass/vol ume] by Automated count Erythrocy 82.2 - fl Normal No Apr 30 te mean 97.8 informati 2016 2:28 corpuscul on in AM ar volume source [Entitic data volume] by Automated count Monocytes 0.1 - 1.0 K/mm3 Normal No Apr 30 informati 2017 2:28 [#/volume on in AM ] in source Blood by data Automated count Monocytes 1.7 - 9.3 % Normal No Apr 30 /100 informati 2017 2:28 leukocyte on in AM s in source Blood by data Automated count Platelet 7.4 - fl Normal Apr 30 mean 10.4 informati 2016 2:28 volume on in AM [Entitic source volume] data in Blood by Automated count Platelets 142 - 424 K/mm3 Normal No Apr 30 informati 2016 2:28 [#/volume on in AM ] in source Blood data Erythrocy 4.2 - 5.4 M/mm3 Normal No Apr 30 informati 2016 2:28 [#/volume on in AM ] in source Amniotic data fluid Erythrocy 11.5 - % Normal No Apr 30 te 17.5 informati 2016 2:28 distribut on in AM ion width source [Entitic data volume] by Automated count Leukocyte 4.5 - K/MM3 Normal No Apr 30 s 13.0 informati 2016 2:28 [#/volume on in AM ] in source Blood data
--- OUTSIDE RECORDS SUMMARY | 2017-05-07 13:13 | External Medical Summary Rpt | CCD ---
Author Author , EDU Organization EDU Address Unknown Phone [email or web address] Immunization Name Date Rout CVX Reac Dose [...] - Sour ce Unsp ecif ied Meni 06- 32 999 Hist H149 No H149 divya 6-20 oric occa 09 al l Info MPSV rmat 4 ion - Sour ce Unsp ecif ied
--- OUTSIDE RECORDS SUMMARY | 2017-05-07 13:13 | External Medical Summary Rpt | CCD ---
Author Author , EDU Organization EDU Address Unknown Phone [email or web address] Immunization Name Date Rout CVX Reac Dose [...]
[2017-05-07 13:14] LABS: AMPHETAMINES/METAMPHETAMINES NEGATIVE ng/mL (<1000)
[2017-05-07 13:19] LABS: URINE SQUAMOUS CELLS OCC #/hpf (0-5)
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
--- OUTSIDE RECORDS SUMMARY | 2017-05-07 15:38 | External Medical Summary Rpt | CCD ---
Author Author , EDU Organization EDU Address Unknown Phone [email or web address] Immunization Name Date Rout CVX Reac Dose [...]
--- OUTSIDE RECORDS SUMMARY | 2017-05-07 15:38 | External Medical Summary Rpt | CCD ---
Author Author , EDU Organization EDU Address Unknown Phone [email or web address] Immunization Name Date Rout CVX Reac Dose [...]
--- OUTSIDE RECORDS SUMMARY | 2017-05-07 15:39 | External Medical Summary Rpt ---
Author Author EDU Jean, [email or web address] Organization [employer] Address Unknown Phone Unavailable Results Acetaminophen [Mass/volume] in Unspecified specimen Observa Value Referen Units Interpr Notes Date tion ce etation Range Acetamino 10 - 30 ug/mL Low No May 07 phen informati 2016 [Mass/vol on in 12:34 PM ume] in source Unspecifi data ed specimen Ethanol [Mass/volume] in Serum or Plasma Observa Value Referen Units Interpr Notes Date tion ce etation Range Ethanol 0 - 99 mg/dL Normal ANY May 07 [Mass/vol ALCOHOL > 2017 ume] in OR = 80 12:34 PM Serum or MG/DL IS Plasma CONSIDERE D LEGALLYIN TOXICATED UNDER [place] [employer] LAW. Salicylates [Mass/volume] in Serum or Plasma Observa Value Referen Units Interpr Notes Date tion ce etation Range Salicylat 2.8 - mg/dL Low No May 07 es 20.0 informati 2016 [Mass/vol on in 12:34 PM ume] in source Serum or data Plasma Urinalysis dipstick W Reflex Microscopic panel in Urine Observa Value Referen Units Interpr Notes Date tion ce etation Range Appeara CLEAR CLEAR No No No May 07 nce of informa informa informa 2016 Urine tion in tion in tion in 12:34 source source source PM data data data Bacteri 1+ O No No No May 07 a informa informa informa 2016 [Presen tion in tion in tion in 12:34 ce] in source source source PM Urine data data data sedimen t by Light microsc opy Bilirub NEGATIV NEG No No No May 07 in E informa informa informa 2016 [Presen tion in tion in tion in 12:34 ce] in source source source PM Urine data data data by Test strip Erythro NEGATIV NEG No No No May 07 cytes E informa informa informa 2016 [Presen tion in tion in tion in 12:34 ce] in source source source PM Urine data data data Color YELLOW YELLOW No No No Dec 3 of informa informa informa 2017 Urine tion in tion in tion in 12:34 source source source PM data data data Glucose NEG No No No Dec 3 [Mass/vol informati informati informati 2017 ume] in on in on in on in 12:34 PM Urine by source source source Test data data data strip Ketones 1+ NEG mg/dL Abnorma No Dec 3 l informa 2017 [Presen tion in 12:34 ce] in source PM Urine data by Automat ed test strip Mucus NEGATIV NEG No No No Dec 3 [Presen E informa informa informa 2017 ce] in tion in tion in tion in 12:34 Urine source source source PM sedimen data data data t by Light microsc opy Nitrite NEGATIV NEG No No No Dec 3 E informa informa informa 2016 [Presen tion in tion in tion in 12:34 ce] in source source source PM Urine data data data by Test strip pH of 5.0 - 8.5 No Normal No Dec 3 Urine informati informati 2017 on in on in 12:34 PM source source data data Protein NEG mg/dL No No Dec 3 [Mass/vol informati informati 2017 ume] in on in on in 12:34 PM Urine by source source Automated data data test strip Specific 1.005 - No Normal No Dec 3 gravity 1.030 informati informati 2017 of Urine on in on in 12:34 PM source source data data Epithel OCC 0 - 5 #/hpf No No Dec 3 ial informa informa 2017 cells.s tion in tion in 12:34 quamous source source PM data data [Presen ce] in Urine sedimen t by Microsc opy high power field Urobili 0.2 NEG E.U./dL No No Dec 3 nogen informa informa 2017 [Presen tion in tion in 12:34 ce] in source source PM Urine data data by Test strip Leukocy [3 O wbc/hpf No No Dec 3 criss wbc/hpf informa informa 2017 [#/volu ; 5 tion in tion in 12:34 me] in wbc/hpf source source PM Urine ] data data CBC W Auto Differential panel in Blood Observa Value Referen Units Interpr Notes Date tion ce etation Range Basophils 0 - 0.2 K/MM3 Normal No May 3 inform2016 [#/volume on in 12:34 PM ] in source Blood by data Automated count Basophils 0.1 - 2.0 % Normal No May 3 /100 inform2016 leukocyte on in 12:34 PM s in source Blood by data Automated count Eosinophi 0.0 - 0.4 K/mm3 Normal No May 07 ls 2016 [#/volume on in 12:34 PM ] in source Blood by data Automated count Eosinophi 0.1 - % Normal No May 07 ls/100 12.0 2016 leukocyte on in 12:34 PM s in source Blood by data Automated count Granulocy 1.8 - 7.8 K/mm3 Normal No May 3 criss 2016 [#/volume on in 12:34 PM ] in source Blood by data Automated count Granulocy 37.0 - % Normal No May 07 criss/100 80.0 2016 leukocyte on in 12:34 PM s in source Blood by data Automated count Hematocri 37.0 - % Normal No May 07 t [Volume 47.0 2016 on in 12:34 PM Fraction] source of Blood data Hemoglobi 12.2 - g/dL Normal No May 07 n 16.2 2016 [Mass/vol on in 12:34 PM ume] in source Blood data Lymphocyt 0.7 - 4.5 K/mm3 Normal No May 07 es 2016 [#/volume on in 12:34 PM ] in source Unspecifi data ed specimen by Automated count Lymphocyt 10 - 50.0 % Normal No May 07 es 2016 [#/volume on in 12:34 PM ] in source Unspecifi data ed specimen by Automated count Erythrocy 27 - 31.2 pg Normal No May 07 te mean 2016 corpuscul on in 12:34 PM ar source hemoglobi data n [Entitic mass] Erythrocy 31.8 - g/dl Normal No May 07 te mean 35.4 2016 corpuscul on in 12:34 PM ar source hemoglobi data n concentra tion [Mass/vol ume] by Automated count Erythrocy 82.2 - fl Normal No May 07 te mean 97.8 2016 corpuscul on in 12:34 PM ar volume source [Entitic data volume] by Automated count Monocytes 0.1 - 1.0 K/mm3 Normal No May 3 informati 2016 [#/volume on in 12:34 PM ] in source Blood by data Automated count Monocytes 1.7 - 9.3 % Normal No Dec 3 /100 informati 2016 leukocyte on in 12:34 PM s in source Blood by data Automated count Platelet 7.4 - fl Normal No May 3 mean 10.4 2016 volume on in 12:34 PM [Entitic source volume] data in Blood by Automated count Platelets 142 - 424 K/mm3 No No May 3 informati informati 2016 [#/volume on in on in 12:34 PM ] in source source Blood data data Erythrocy 4.2 - 5.4 M/mm3 Normal No May 3 criss informati 2016 [#/volume on in 12:34 PM ] in source Amniotic data fluid Erythrocy 11.5 - % Normal No May 07 te 17.5 2016 distribut on in 12:34 PM ion width source [Entitic data volume] by Automated count Leukocyte 4.5 - K/MM3 Normal No May 3 s 13.0 inform2016 [#/volume on in 12:34 PM ] in source Blood data Drugs identified in Urine by Screen method Observa Value Referen Units Interpr Notes Date tion ce etation Range Positive urine drug screen samples are stored for 7 days. Contact the Lab if confirmation of positives is needed. Ampheta NEGATIV <1000 ng/mL No No May 07 mine E informa informa 2016 [Presen tion in tion in 12:34 ce] in source source PM Urine data data by Screen method Barbitura <200 ng/mL No No May 3 criss informati informati 2016 [Mass/vol on in on in 12:34 PM ume] in source source Urine by data data Screen method Benzodiaz 200 ng/mL ng/mL No No May 3 epines informati informati 2016 [Mass/vol on in on in 12:34 PM ume] in source source Serum or data data Plasma by Screen method Cocaine <300 ng/g No No May 3 [Mass/vol informati informati 2016 ume] in on in on in 12:34 PM Unspecifi source source ed data data specimen Methadone <300 ng/mL No No May 3 informati informati 2016 [Mass/vol on in on in 12:34 PM ume] in source source Unspecifi data data ed specimen Opiates <300 ng/mL No No Dec 3 [Mass/vol informati informati 2016 ume] in on in on in 12:34 PM Unspecifi source source ed data data specimen Phencycli <25 ng/mL No No Dec 3 dine informati informati 2016 [Mass/vol on in on in 12:34 PM ume] in source source Unspecifi data data ed specimen 11-Hydr NEGATIV <50 ng/mL No No Dec 3 oxy E informa informa 2017 delta-9 tion in tion in 12:34 source source PM tetrahy data data drocann abinol [Presen ce] in Unspeci fied specime n Comprehensive metabolic 2000 panel in Serum or Plasma Observa Value Referen Units Interpr Notes Date tion ce etation Range Albumin/G 1.1 - 1.8 No Normal No Dec 3 lobulin informati informati 2016 [Mass on in on in 12:34 PM ratio] in source source Serum or data data Plasma Albumin 3.4 - 5.0 gm/dL Normal No Dec 3 [Mass/vol informati 2016 ume] in on in 12:34 PM Serum or source Plasma data Alkaline 46 - 116 U/L High No Dec 3 phosphata informati 2016 se on in 12:34 PM [Enzymati source c data activity/ volume] in Serum or Plasma Bilirubin 0.2 - 1.0 mg/dL Normal No Dec 3 .total informati 2016 [Mass/vol on in 12:34 PM ume] in source Serum or data Plasma Urea 7 - 18 mg/dL Normal No Dec 3 nitrogen informati 2016 [Mass/vol on in 12:34 PM ume] in source Serum or data Plasma Calcium 8.5 - mg/dL Normal No Dec 3 [Mass/vol 10.1 informati 2016 ume] in on in 12:34 PM Serum or source Plasma data Chloride 98 - 107 mmoL/L Normal No Dec 3 [Moles/vo informati 2016 lume] in on in 12:34 PM Serum or source Plasma data Carbon 21.0 - mmoL/L Normal No Dec 3 dioxide, 32.0 informati 2016 total on in 12:34 PM [Moles/vo source lume] in data Serum or Plasma Creatinin 0.55 - mg/dL Normal No Dec 3 e 1.02 inform2016 [Mass/vol on in 12:34 PM ume] in source Serum or data Plasma Creatinin 50 - 200 ML/MIN Normal No May 3 e renal 2016 clearance on in 12:34 PM source predicted data by Cockcroft -Gault formula Estimated 59- ML/MIN No REFERENCE Dec informati RANGE: 2017 glomerula on in >60 12:34 PM r source ML/MIN/1. filtratio data 73 SQUARE n rate METERSIf (GF this patient is -A merican, then multiply theresult by 1.210. Globulin 1.3 - 3.2 gm/dL High No May 07 [Mass/vol informati 2016 ume] in on in 12:34 PM Serum source data Glucose 74 - 106 mg/dL High No May 07 [Mass/vol informati 2016 ume] in on in 12:34 PM Serum or source Plasma data Potassium 3.5 - 5.1 mmoL/L Normal No May 072016 [Moles/vo on in 12:34 PM lume] in source Serum or data Plasma Sodium 136 - 145 mmoL/L Normal No May 07 [Moles/vo informati 2016 lume] in on in 12:34 PM Serum or source Plasma data Aspartate 15 - 37 U/L Normal No May 072016 aminotran on in 12:34 PM sferase source [Enzymati data c activity/ volume] in Serum or Plasma Alanine 12 - 78 U/L Normal No May 07 aminotran inform2016 sferase on in 12:34 PM [Enzymati source c data activity/ volume] in Serum or Plasma Protein 6.4 - 8.2 gm/dL Normal No May 3 [Mass/vol informati 2016 ume] in on in 12:34 PM Serum or source Plasma data Urinalysis dipstick W Reflex Microscopic panel in Urine Observa Value Referen Units Interpr Notes Date tion ce etation Range Appeara CLEAR CLEAR No No No May 07 nce of informa informa informa 2016 Urine tion in tion in tion in 12:34 source source source PM data data data Bilirub NEGATIV NEG No No No May 07 in E informa informa informa 2016 [Presen tion in tion in tion in 12:34 ce] in source source source PM Urine data data data by Test strip Erythro NEGATIV NEG No No No Dec 3 cytes E informa informa informa 2016 [Presen tion in tion in tion in 12:34 ce] in source source source PM Urine data data data Color YELLOW YELLOW No No No Dec 3 of informa informa informa 2017 Urine tion in tion in tion in 12:34 source source source PM data data data Glucose NEG No No No Dec 3 [Mass/vol informati informati informati 2016 ume] in on in on in on in 12:34 PM Urine by source source source Test data data data strip Ketones 1+ NEG mg/dL Abnorma No Dec 3 l informa 2017 [Presen tion in 12:34 ce] in source PM Urine data by Automat ed test strip Mucus NEGATIV NEG No No No Dec 3 [Presen E informa informa informa 2016 ce] in tion in tion in tion in 12:34 Urine source source source PM sedimen data data data t by Light microsc opy Nitrite NEGATIV NEG No No No Dec 3 E informa informa informa 2016 [Presen tion in tion in tion in 12:34 ce] in source source source PM Urine data data data by Test strip pH of 5.0 - 8.5 No Normal No Dec 3 Urine informati informati 2017 on in on in 12:34 PM source source data data Protein NEG mg/dL No No Dec 3 [Mass/vol informati informati 2017 ume] in on in on in 12:34 PM Urine by source source Automated data data test strip Specific 1.005 - No Normal No Dec 3 gravity 1.030 informati informati 2016 of Urine on in on in 12:34 PM source source data data Urobili 0.2 NEG E.U./dL No No Dec 3 nogen informa informa 2016 [Presen tion in tion in 12:34 ce] in source source PM Urine data data by Test strip Choriogonadotropin.beta subunit [Units] in 24 hour Urine Observa Value Referen Units Interpr Notes Date tion ce etation Range Choriogon NEG No No No Dec 3 adotropin informati informati informati 2017 .beta on in on in on in 12:34 PM subunit source source source [Units] data data data in 24 hour Urine Drugs identified in Urine by Screen method Observa Value Referen Units Interpr Notes Date tion ce etation Range Positive urine drug screen samples are stored for 7 days. Contact the Lab if confirmation of positives is needed. Ampheta NEGATIV <1000 ng/mL No No Apr 30 mine E informa informa [...] by Screen method Cocaine <300 ng/g No No Apr 30 [Mass/vol informati informati 2016 3:10 ume] in on in on in AM Unspecifi source source ed data data specimen Methadone <300 ng/mL No Apr 30 informati informati 2016 3:10 [Mass/vol on in on in AM ume] in source source Unspecifi data data ed specimen Opiates <300 ng/mL No No Apr 30 [Mass/vol informati informati 2016 3:10 ume] in on in on in AM Unspecifi source source ed data data specimen Phencycli <25 ng/mL No No Apr 30 dine informati informati 2016 3:10 [Mass/vol on in on in AM ume] in source source Unspecifi data data ed specimen 11-Hydr NEGATIV <50 ng/mL No No Apr 30 oxy E informa informa 2017 delta-9 tion in tion in 3:10 AM source source tetrahy data data drocann abinol [Presen ce] in Unspeci fied specime n Choriogonadotropin.beta subunit [Units] in 24 hour Urine Observa Value Referen Units Interpr Notes Date tion ce etation Range Choriogon NEG No No Apr 30 adotropin informati informati [...] % Normal No Apr 30 /100 informati 2016 2:28 leukocyte on in AM [...] - 50.0 % Normal No Apr 30 informati 2016 2:28 [...] Automated count Erythrocy 82.2 - fl Normal Apr 30 te mean 97.8 informati 2016 2:28 corpuscul on in AM ar volume source [Entitic data volume] by Automated count Monocytes 0.1 - 1.0 K/mm3 Normal No Apr 30 informati 2017 2:28 [#/volume on in AM ] in source Blood by data Automated count Monocytes 1.7 - 9.3 % Normal No Apr 30 /100 informati 2016 2:28 leukocyte on in AM s in source Blood by data Automated count Platelet 7.4 - fl Normal No Apr 30 mean 10.4 informati 2016 2:28 volume on in AM [Entitic source volume] data in Blood by Automated count Platelets 142 - 424 K/mm3 Normal No Apr 30 informati 2016 2:28 [#/volume on in AM ] in source Blood data Erythrocy 4.2 - 5.4 M/mm3 Normal No Apr 30 criss informati 2016 2:28 [#/volume on in AM ] in source Amniotic data fluid Erythrocy 11.5 - % Normal Apr 30 te 17.5 informati 2016 2:28 distribut on in AM ion width source [Entitic data volume] by Automated count Leukocyte 4.5 - K/MM3 Normal No Apr 30 s 13.0 informati 2016 2:28 [#/volume on in AM ] in source Blood data
--- OUTSIDE RECORDS SUMMARY | 2017-05-07 15:39 | External Medical Summary Rpt ---
Author Author EDU Jean, [employer] Organization [employer] Address Unknown Phone Unavailable [...] IS Plasma CONSIDERE D LEGALLYIN TOXICATED UNDER [place] [employer] LAW. Salicylates [Mass/volume] in Serum or Plasma [...]
[2017-05-07 16:35] VITALS: BP 111/62
[2017-05-07 16:37] VITALS: BP 111/62
[2017-05-07] MEDS ORDERED: BUPROPION HCL300 MG PO (18:35)
[2017-05-07] MEDS ORDERED: LAMOTRIGINE300 MG PO (18:35)
[2017-05-07 20:08] VITALS: BP 109/61
[2017-05-07 20:25] VITALS: BP 109/61
--- NOTE | 2017-05-07 21:28 | RADIOLOGY REPORT PS360 ---
CHEST-PORTABLE Ordering physician: Sorin Giron MD Age: 21 years Female INDICATION: Portable AP upright chest symptomsSOA PROCEDURE: CHEST-PORTABLE FINDINGS: Lungs well expanded and clear. Nothing definitely acute. Subtle increased density towards the left lung base most likely reflects overlying breast density. Doubt early infiltrate. Upper lung brandt clear. Right lung unremarkable heart normal size. Tata and mediastinal structures satisfactory environmental monitoring technician leads in placeNo pneumothorax. No pleural effusion.. Chest wall unremarkable.. IMPRESSION ----- Nothing definitely acute . Slight increased density towards the left lung base most likely due to overlapping breast density & mild atelectasis.. If cough or respiratory symptoms suggest 2 view chest better exclude early infiltrate towards left lung base.
--- NOTE | 2017-05-07 21:28 | RADIOLOGY REPORT PS360 ---
CHEST-PORTABLE Ordering physician: Sorin Giron MD Age: 21 years Female INDICATION: Portable AP upright chest symptomsSOA PROCEDURE: CHEST-PORTABLE FINDINGS: Lungs well expanded and clear. Nothing definitely acute. Subtle increased density towards the left lung base most likely reflects overlying breast density. Doubt early infiltrate. Upper lung brandt clear. Right lung unremarkable heart normal size. Tata and mediastinal structures satisfactory child monitor leads in placeNo pneumothorax. No pleural effusion.. Chest wall unremarkable.. IMPRESSION ----- Nothing definitely acute . Slight increased density towards the left lung base most likely due to overlapping breast density & mild atelectasis.. If cough or respiratory symptoms suggest 2 view chest better exclude early infiltrate towards left lung base.
[2017-05-08] VITALS (9 sets, daily range): BP systolic 107–131; BP diastolic 51–85
--- NOTE | 2017-05-08 07:15 | PHARMACY CLINIC NOTE ---
Patient Demographics Patient Demographics Admission date: 05/07/17 Date: 05/08/17 Time: 0714 Allergies Coded Allergies: No Known Drug Intolerances (NA 05/08/17) HEIGHT- FT: 5 IN: 6.00 K.088 VTE General Information Labs: Laboratory Tests 05/07 1234 Hematology Hgb (12.2 - 16.2 g/dL) 12.8 Hct (37.0 - 47.0 %) 38.8 Plt Count (142 - 424 K/mm3) 303 Disclaimer The following section includes nursing documentation that has been pulled in for pharmacy review. Patient's VTE score: 1 Patient's VTE Risk: VERY LOW RISK Clinical trial participant? No VTE prophylaxis NQF [id number] VTE prophylaxis ordered? Yes Type of prophylaxis/treatment: ILSA at 0714
--- NOTE | 2017-05-08 07:15 | PHARMACY CLINIC NOTE ---
Patient Demographics Patient Demographics Admission date: 05/07/17 Date: 05/08/17 Time: 0714 Allergies Coded Allergies: No Known Drug Intolerances (NA 05/08/17) HEIGHT- FT: 5 IN: 6.00 K.088 VTE General Information Labs: Laboratory Tests 05/07 1234 Hematology Hgb (12.2 - 16.2 g/dL) 12.8 Hct (37.0 - 47.0 %) 38.8 Plt Count (142 - 424 K/mm3) 303 Disclaimer The following section includes nursing documentation that has been pulled in for pharmacy review. Patient's VTE score: 1 Patient's VTE Risk: VERY LOW RISK Clinical trial participant? No VTE prophylaxis NQF [id number] VTE prophylaxis ordered? Yes Type of prophylaxis/treatment: LISA at 0714
--- NOTE | 2017-05-08 07:20 | Discharge Summary Standard ---
Demographics: Admit date: 05/07/17 Chief complaint: Intentional toxic ingestion PRIMARY DIAGNOSIS: OVERDOSE OF XANAX Allergies: Coded Allergies: No Known Drug Intolerances (NA 05/08/17) History of present illness: History of present illness: 21-year-old female with history of bipolar disorder intentionally took 10 Wellbutrin, 5 Klonopin, 3 Xanax on Monday evening. On Monday she was having trouble moving admitted due to dizziness and had developed a vomiting. An ambulance was called and she was brought to the emergency department. Patient admits to me this morning that she intentionally overdosed on medicines because she felt like her mother and father do not love her. Her mother and father came to the emergency department as soon as they became aware of her situation. The patient now claims this proves to her that her parents do love her. She regrets the suicide attempt and is no longer suicidal. ER note references a situation with a significant other but patient minimizes that as the cause of her suicide attempt. Patient denies being suicidal this morning. She was admitted and placed on IV fluids. During the night she requested IV fluids be disconnected. She remains dizzy with ambulation. Despite her supratherapeutic doses of Klonopin and Xanax her urine drug screen was negative for benzos Past medical history: Family HX Family Hx Insignificant No Diabetes Yes CAD Yes Hypertension Yes Hyperlipidemia Yes Cancer No TB No Immunization HX Ped.Immunizations UTD Yes DT/Tetanus 1-4 Years Ago Flu 2016-SN Pneumonia Refuses TB Test in last year No General CAD? No Angina: No [place]: No Hypertension? No Hyperlipidemia? No CHF? No DVT? No PE? No COPD? No Asthma? No Anemia? No GERD? No Gastric ulcers? No GI Bleed? No Hernia? No Thyroid Problems? No Hypothyroidism? No CVA? No Seizures? No Diabetes? No Renal Insuffiency? No UTI? No Stones? No BPH? No GB Disease: No Nephritic Syndrome? No Asplenia? No Hepatitis? No Sickle Cell Disease? No Arthritis? No Migraines? No Cataracts? No Glaucoma? No MRSA? No HIV? No TB? No Anxiety? Yes Depression? Yes Cancer? No More? Yes Additional hx: BIPOLAR, ADHD, BODERLINE PERSOALITY DISORDER Past Surgical HX Previous Surgery?Y TUBES IN EARS EAR TUBES BILAT Current home meds: Reported Medications BUPROPION HCL (Bupropion XL) 300 MG PO DAILY #30 Hydroxyzine Pamoate (Vistaril) 25 MG PO QHS Mirtazapine (Remeron) 15 MG PO QHS FOLIC ACID (Folic Acid) 10 MG PO DAILY Gabapentin (Gabapentin 100MG) 100 MG PO PRN PRN ANXIETY Lamotrigine (Lamictal XR) 300 MG PO DAILY Clonazepam (Clonazepam 0.5MG) 0.5 MG PO QHS #30 Social Hx: Smoking HX Tobacco Yes Type Cigarettes Packs/day < 1 PACK Are you/the child exposed to second-hand smoke: Yes Alcohol Alcohol: No Hx of Drug Use Drug Use? No Patient's support system is fair Review of systems: Constitutional no symptoms reported. Respiratory no symptoms reported. Cardiovascular no symptoms reported Gastrointestinal/Abdominal no symptoms reported Genitourinary no symptoms reported. Musculoskeletal no symptoms reported. Neurological Yes: see HPI. Exam: Lab data for last 24 hours: Laboratory Tests 05/07/17 1234: Opiates Screen NEGATIVE, Urine Methadone Screen NEGATIVE, Barbiturates NEGATIVE, Phencyclidine Screen NEGATIVE, Amphetamines Screen NEGATIVE, Benzodiazepines Screen NEGATIVE, Cocaine Screen NEGATIVE, Marijuana (THC) Screen NEGATIVE 05/07/17 1234: Sodium 141, Potassium 3.6, Chloride 105, Carbon Dioxide 24, BUN 12, Creatinine 0.9, Estimated Creat Clear 160, Estimated GFR (MDRD) 81, Glucose 179 H, Calcium 9.1, Total Bilirubin 0.7, AST 23, ALT 42, Alkaline Phosphatase 117 H, Total Protein 7.5, Albumin 3.9, Globulin 3.6 H, Albumin/Globulin Ratio 1.1, WBC 9.2, RBC 4.40, Hgb 12.8, Hct 38.8, MCV 88.2, RDW 11.7, Plt Count 303, MPV 8.0, Gran % 77.9, Gran # 7.1, Lymphocytes % 19.2, Monocytes % 2.5, Eosinophils % 0.3, Basophils % 0.2, Lymphocytes # 1.8, Monocytes # 0.2, Eosinophils # 0.0, Basophils # 0.0, PUBS MCHC 33.1, MCH 29.2, Salicylates 0.4 L, Acetaminophen 0 L, Alcohols 0, Urine Color YELLOW, Urine Appearance CLEAR, Urine pH 6.5, Ur Specific O'Brien 1.025, Urine Protein NEGATIVE, Urine Ketones 1+ H, Urine Blood NEGATIVE, Urine Nitrate NEGATIVE, Urine Bilirubin NEGATIVE, Urine Urobilinogen 0.2, Ur Leukocyte Esterase NEGATIVE, Urine WBC 3-5, Ur Squamous Epith Cells OCC, Urine Bacteria 1+, Urine Glucose NEGATIVE Admission vital signs: 1ST Vital Signs Result Date Time Pulse Ox 98 05/07 1237 B/P 150/81 05/07 1237 Temp 97.8 05/07 1237 Pulse 105 05/07 1237 Resp 18 05/07 1237 O2 Delivery ROOM AIR 05/07 1635 Exam General appearance: alert, awake, no acute distress Eyes: pupils reactive to light ENT: mucous membranes moist Neck: no carotid bruit, no JVD Cardiovascular: regular rate & rhythm Respiratory: clear to auscultation ABD: soft, no tenderness Extremities: moves all Musculoskeletal: equal muscle strength, motor intact, sensation intact Neuro: alert, flower buncher or picker II-XII nml as tested, speech clear Hospital Course Hospital Course: Patient was admitted and placed on IV fluids. Seizure precautions were taken due to Wellbutrin side effect of lowering seizure threshold. Patient remained seizure-free. In discussion with the patient she has seen Marlen Bello in counseling. Care management consult was placed to arrange appropriate counseling follow-up. Patient was continued on IV fluids until afternoon of the fourth. She was discharged home later in the day. She will follow-up in my office on Monday and was Marlen Bello. Medications Medications: Discharge meds are as noted. Follow up Follow up in office in: 4 DAYS with: Mack DUMONT,Sorin
[2017-05-08 08:18] LABS: HEMOGLOBIN 12.4 g/dL (12.2-16.2); LYMPH # 2.6 K/mm3 (0.7-4.5); LYMPH % 27.2 % (10-50.0)
== END 2017-05-08 23:00 | disposition home or self-care (01) ==
LOC: ER 12:33 → 2ND 15:07 → ER 15:07 → 2ND 15:07
PROVIDERS: Emergency Medicine
DX: T43.292A Poisoning by other antidepressants, intentional self-harm, initial encounter (principal); T42.4X2A Poisoning by benzodiazepines, intentional self-harm, initial encounter; R42 Dizziness and giddiness; R11.10 Vomiting, unspecified; F32.9 Major depressive disorder, single episode, unspecified; Y92.009 Unspecified place in unspecified non-institutional (private) residence as the place of occurrence of the external cause; F17.210 Nicotine dependence, cigarettes, uncomplicated; F31.9 Bipolar disorder, unspecified; Z82.49 Family history of ischemic heart disease and other diseases of the circulatory system; Z83.3 Family history of diabetes mellitus; Z83.49 Family history of other endocrine, nutritional and metabolic diseases; F90.9 Attention-deficit hyperactivity disorder, unspecified type; Z79.899 Other long term (current) drug therapy
CPT/HCPCS: G0378; J2405